=== PATIENT | male | born 1980 | race Caucasian/White ===

== ENCOUNTER 2020-07-19 09:22 | Emergency (ER) | payer MEDICAID, SELFPAY ==
--- NOTE | 2020-07-19 | CA_ITS ---
APPROVED REPORT Left Lower Extremity Venous Study for DVT. Extruder Operator: ELIA Indications Lower Extremity Pain: Vein Imaging CFV (L): compressive, spontaneous, phasic, augmentation SFJ (L): compressive, spontaneous, phasic, augmentation FEM (L): compressive, spontaneous, phasic, augmentation POP (L): compressive, spontaneous, phasic, augmentation DFV (L): compressive, spontaneous, phasic, augmentation PTV (L): Compressible GSV (L): Compressible Peroneals (L):Compressible GAS (L): Compressible Findings No evidence of DVT or superficial thrombophlebitis in the veins scanned of the left lower extremity. Conclusion No evidence of DVT or superficial thrombophlebitis in the veins scanned of the left lower extremity. Electronically signed by : Jose M Mondragon MD 07/19/2020 17:01:17
[2020-07-19 09:29] VITALS: BP 163/91; PULSE 122; RESP 18; TEMP 37.6; O2SAT 98; BMI 54.2
--- NOTE | 2020-07-19 09:39 | [facility].EDGENADL ---
ED Disposition Clinical Impression: Cellulitis Qualifiers: Site of cellulitis: extremity Site of cellulitis of extremity: lower extremity Laterality: left Qualified Code(s): L03.116 - Cellulitis of left lower limb Disposition: Home, Self-Care Condition on Discharge: Fair Instructions: Cellulitis Additional Instructions: We did an ultrasound of the left lower extremity and it is noticed that you do not have a DVT. However you do have an increase in white cell count up to 20; This is consistent with cellulitis ; plan is to give your first dose of IV antibiotic with is daptomycin, here in the ER and continue further dosing as an outpatient; advise to follow-up with your primary care doctor for any questions or concerns Referrals: Loi Garcia [Primary Care Provider] - Time of Disposition: 10:53 - Critical Care Critical Care Time: No Attestation: On 07/19/20, the high probability of a clinically significant, sudden or life threatening deterioration of the following system(s) required my full and direct attention, intervention and personal management. The time I documented below is in addition to time spent performing reported procedures but includes the following listed in this critical care notation. Medical Decision Making - Medical Records Medical records reviewed: Yes: I reviewed the patient's medical records. MR Comment: This is a 39-year-old male here with complaint of redness in his left lower extremity as well as pain in his calf he has no previous history of DVT. Did an ultrasound of the left lower extremity and it is noticed that the patient does not have a DVT he does have an increase in his white cell count up to 20; lites are essentially normal with a slightly elevated glucose; plan is to give him his first dose of antibiotic with is daptomycin and continue further dosing as an outpatient patient is being advised to follow-up with his primary care doctor - Eddie Inquiry Pt receiving controlled substance: No Eddie was queried for this patient: No Vital Signs: 07/19/20 09:29 Temperature 99.7 F H Temperature Source Oral Pulse Rate [Radial] 122 H Respiratory Rate 18 Blood Pressure [Right Arm] 163/91 H Blood Pressure Mean [Right Arm] 115 Blood Pressure Position [Right Arm] Sitting 02 Sat by Pulse Oximetry 98 Oxygen Delivery Method Room Air - Lab Data Lab results reviewed: Yes: I reviewed the patient's lab results. Lab Results 07/19/20 10:05: WBC 20.0 H, RBC 5.65, Hgb 15.2, Hct 48.0, MCV 84.9, MCH 26.9 L, MCHC 31.7 L, RDW 14.7, Plt Count 395, MPV 7.4, Neut % (Auto) 83.5 H, Lymph % (Auto) 8.8 L, [place] % (Auto) 5.7, Eos % (Auto) 1.2, Baso % (Auto) 0.9, Neut # (Auto) 16.7 H, Lymph # (Auto) 1.7, [place] # (Auto) 1.1 H, Eos # (Auto) 0.2, Baso # (Auto) 0.2, Total Counted 100, Neutrophils % (Manual) 82 H, Lymphocytes % (Manual) 13, Monocytes % (Manual) 5, Platelet Estimate Normal, RBC Morphology Normal 07/19/20 10:05: Sodium 138, Potassium 4.2, Chloride 99, Carbon Dioxide 30, Anion Gap 13.2, BUN 12, Creatinine 1.00, Estimated Creat Clear 111, Estimated GFR 84, Est GFR ( Amer) 102, Glucose 236 H, Calcium 9.6, Total Bilirubin 1.3, AST 23, ALT 36, Alkaline Phosphatase 71, Total Protein 7.7, Albumin 4.3, Globulin 3.4 H, Albumin/Globulin Ratio 1.3 Result diagrams: 07/19/20 10:05 07/19/20 10:05 General Adult HPI - General Chief complaint: PAIN Stated complaint: left leg pain Time Seen by Provider: 07/19/20 09:40 Mode of Arrival: Ambulatory Limitations: No Limitations Description of Symptoms (Recalled from ER Triage Doc. by RN): to ed per pvt car with c/o redness, pain lt lower leg starting yesterday. denies fever, chills, nausea. lt lower leg warm to touch, redness - History of Present Illness HPI narrative: This is a 39-year-old male here with complaint of redness in his left lower extremity as well as pain in his calf he has no previous history of DVT Onset (ago): day(s) Location: l
--- NOTE | 2020-07-19 09:45 | PC.NURSE ---
[facility] lab aware of need for Doppler
[2020-07-19 10:10] LABS: Basophils # 0.2 K/mm3 (0-0.2); Basophils % 0.9 % (0.1-2.0); Eosinophils # 0.2 K/mm3 (0.0-0.4); Eosinophils % 1.2 % (0.1-12.0); Hemoglobin 15.2 g/dL (14.1-18.0); Lymphocytes # 1.7 K/mm3 (0.7-4.5); Lymphocytes % 8.8 % (10-50); Mean Corpuscular HGB Conc 31.7 g/dL (31.8-35.4); Mean Corpuscular Hemoglobin 26.9 pg (27.0-31.2); Mean Corpuscular Volume 84.9 fl (80-94); Mean Platelet Volume 7.4 fl (7.4-10.4); Monocytes # 1.1 K/mm3 (0.1-1.0); Monocytes % 5.7 % (1.7-9.3); Neutrophils # 16.7 K/mm3 (1.8-7.8); Neutrophils % 83.5 % (37.0-80.0); Platelet Count 395 K/mm3 (142-424); Red Blood Count 5.65 M/mm3 (4.60-6.20); Red Cell Distribution Width 14.7 % (11.5-17.5)
[2020-07-19 10:13] LABS: MANUAL DIFFERENTIAL MANUAL DIFFERENTIAL (MANUAL DIFF)
--- NOTE | 2020-07-19 10:15 | PC.NURSE ---
Per Christiana with [facility] pt's venous doppler was negative.
[2020-07-19 10:17] LABS: Chloride 99 mmol/L (98-107); Potassium 4.2 mmoL/L (3.5-5.1); Sodium 138 mmol/L (136-145)
[2020-07-19 10:19] LABS: Blood Urea Nitrogen 12 mg/dl (9-20)
[2020-07-19 10:20] LABS: Alanine Aminotransferase 36 U/L (12-78); Albumin Level 4.3 g/dl (3.5-5.0); Albumin/Globulin Ratio 1.3 (1.1-1.8); Alkaline Phosphatase 71 U/L (38-126); Anion Gap 13.2 mEq/L (5-15); Aspartate Amino Transferase 23 U/L (17-59); Bilirubin,Total 1.3 mg/dl (0.2-1.3); Carbon Dioxide 30 mmol/L (22.0-30.0); Creatinine Clearance Estimated 111 mL/min (50-200); Estimated Glomerular Filt Rate 84 ml/min (>60); GFR (African American) 102 ML/MIN (>60); Globulin 3.4 g/dL (1.3-3.2); Total Protein,Serum 7.7 g/dl (6.3-8.2)
[2020-07-19 10:21] LABS: Calcium 9.6 mg/dl (8.4-10.2); Glucose 236 mg/dl (74-100)
[2020-07-19 10:24] LABS: Lymphocytes % 13 % (10-50); Monocytes % 5 % (2-9); Neutrophils % 82 % (42-76); Platelet Estimate Normal; RBC Morphology Normal; Total Cells Counted 100
[2020-07-19 12:18] VITALS: BP 132/74; PULSE 102; RESP 18; TEMP 36.6; O2SAT 98
== END 2020-07-19 12:17 | disposition home or self-care (01) ==
PROVIDERS: Emergency Provider Emergency Medicine; PCP Internal Medicine
DX: M79.662 Pain in left lower leg (principal); L03.116 Cellulitis of left lower limb; R73.9 Hyperglycemia, unspecified
CPT/HCPCS: 80053; 85007; 85025; 93971; 96365; 99282; J0878

== ENCOUNTER → 2020-07-20 11:16 | Outpatient (CLI) | payer MEDICAID, SELFPAY ==
[2020-07-20 11:49] VITALS: BP 139/82; PULSE 102; RESP 20; TEMP 36.9; O2SAT 100
[2020-07-20 12:29] VITALS: BP 139/82; PULSE 102; RESP 18; TEMP 36.9; O2SAT 100
== END ==
PROVIDERS: PCP Internal Medicine; Visit Provider Emergency Medicine
DX: L03.90 Cellulitis, unspecified (principal)
CPT/HCPCS: 96365; J0878

== ENCOUNTER → 2020-07-21 10:59 | Outpatient (CLI) | payer MEDICAID, SELFPAY ==
[2020-07-21 11:30] VITALS: BP 147/88; PULSE 99; RESP 20; TEMP 36.9; O2SAT 97
[2020-07-21 12:20] VITALS: BP 137/105; PULSE 91; RESP 20; O2SAT 98
== END ==
PROVIDERS: PCP Internal Medicine; Visit Provider Emergency Medicine
DX: L03.90 Cellulitis, unspecified (principal)
CPT/HCPCS: 96365; J0878

== ENCOUNTER 2020-07-22 10:39 | Outpatient (CLI) | payer MEDICAID, SELFPAY ==
[2020-07-22 10:54] VITALS: BP 140/88; PULSE 101; RESP 20; O2SAT 96
[2020-07-22 11:07] LABS: Creatine Kinase 91 U/L (55-170)
[2020-07-22 11:56] VITALS: BP 141/80; PULSE 86; RESP 18
== END 2020-07-22 11:56 | disposition home or self-care (01) ==
LOC: INF 10:39
PROVIDERS: Visit Provider Emergency Medicine
DX: L03.116 Cellulitis of left lower limb (principal)
CPT/HCPCS: 82550; 96365; J0878

== ENCOUNTER 2020-07-23 10:40 | Outpatient (CLI) | payer MEDICAID, SELFPAY ==
[2020-07-23 11:11] VITALS: BP 152/84; PULSE 89; RESP 18; TEMP 37.1; O2SAT 98
[2020-07-23 12:05] VITALS: BP 140/79; PULSE 82; RESP 18; TEMP 36.9; O2SAT 98
== END 2020-07-23 12:05 | disposition home or self-care (01) ==
LOC: INF 10:41
PROVIDERS: Visit Provider Emergency Medicine
DX: L03.116 Cellulitis of left lower limb (principal)
CPT/HCPCS: 96365; J0878

== ENCOUNTER 2020-07-24 10:51 | Outpatient (CLI) | payer MEDICAID, SELFPAY ==
[2020-07-24 11:07] VITALS: BP 121/85; PULSE 97; RESP 20; TEMP 36.7; O2SAT 100
[2020-07-24 11:37] VITALS: BP 127/86; PULSE 96; RESP 20; O2SAT 99
[2020-07-24 12:00] VITALS: BP 127/82; PULSE 89; RESP 20; O2SAT 99
== END 2020-07-24 12:00 | disposition home or self-care (01) ==
LOC: INF 10:51
PROVIDERS: PCP Internal Medicine; Visit Provider Emergency Medicine
DX: L03.116 Cellulitis of left lower limb (principal)
CPT/HCPCS: 96365; J0878

== ENCOUNTER 2020-07-25 10:47 | Outpatient (CLI) | payer MEDICAID, SELFPAY ==
[2020-07-25 11:00] VITALS: BP 141/86; PULSE 99; RESP 20; TEMP 36.7; O2SAT 95
[2020-07-25 11:45] VITALS: BP 132/95; PULSE 89; RESP 20
== END 2020-07-25 12:00 | disposition home or self-care (01) ==
LOC: INF 10:47
PROVIDERS: Visit Provider Emergency Medicine
DX: L03.116 Cellulitis of left lower limb (principal)
CPT/HCPCS: 96365; J0878